=== PATIENT | male | born 1930 | race Caucasian/White ===

== ENCOUNTER 2017-02-10 15:58 | Inpatient (IN) | payer MEDICARE, OTHER ==
[~2017-02-10] VITALS: Ht 175.3 cm; Wt 75.3 kg
[2017-02-10 18:00] VITALS: BP 115/56
[2017-02-10] MEDS ORDERED: MAGNESIUM HYDROXIDE SUSPENSION 30 ML UDCUP PO PRN (18:15)
[2017-02-10] MEDS ORDERED: ONDANSETRON HCL 4 MG TABLET PO PRN (18:15)
[2017-02-10] MEDS ORDERED: ACETAMINOPHEN 325 MG TABLET PO PRN ×2 (18:15)
[2017-02-10] MEDS ORDERED: SODIUM PHOS/SODIUM BIPHOS 133 ML ENEMA PR PRN (18:15)
[2017-02-10] MEDS ORDERED: NITROGLYCERIN 0.4 MG SUBLINGUAL TABLET #25 SL PRN (18:15)
[2017-02-10] MEDS: DOCUSATE SODIUM 250 MG CAPSULE PO SCH (20:53)
[2017-02-10] MEDS: SIMVASTATIN 40 MG TABLET PO SCH (20:53)
[2017-02-10] MEDS: SENNA 187 MG TABLET PO SCH (20:53)
[2017-02-10] MEDS: FAMOTIDINE 20 MG TABLET PO SCH (20:53)
[2017-02-10 22:37] LABS: APPEARANCE,URINE CLEAR (CLEAR); BILIRUBIN,URINE NEGATIVE (NEGATIVE); GLUCOSE, URINE (UA) NEGATIVE (NEGATIVE); KETONES,URINE NEGATIVE (NEGATIVE); LEUKOCYTE ESTERASE ,URINE NEGATIVE (NEGATIVE); NITRATE,URINE NEGATIVE (NEGATIVE); OCCULT BLOOD,URINE NEGATIVE (NEGATIVE); PH,URINE 6.5 (5.0-8.0); PROTEIN,URINE NEGATIVE (NEGATIVE)
[2017-02-10 22:47] LABS: WBC,URINE None Seen /HPF (0-5)
[2017-02-10 22:48] LABS: BACTERIA,URINE None Seen /HPF (None Seen); RBC,URINE 0-2 /HPF (0-2)
[2017-02-10 23:49] VITALS: BP 151/68
[2017-02-11 05:00] VITALS: BP 142/85
[2017-02-11 07:14] VITALS: BP 128/64
[2017-02-11 08:10] LABS: BASOPHILS % (AUTO) 0.4 % (0.0-2.0); EOSINOPHILS % (AUTO) 1.9 % (1.0-6.0); HEMATOCRIT 46.1 % (41-53); HEMOGLOBIN 15.9 g/dL (13.5-17.5); LYMPHOCYTES # (AUTO) 2.1 K/uL (1.0-4.8); MEAN CORPUSCULAR HEMOGLOBIN 33.6 pg (26.0-34.0); MEAN CORPUSCULAR HGB CONC 34.6 G/dL (31.0-37.0); MEAN CORPUSCULAR VOLUME 97 fL (80-100); MONOCYTES # (AUTO) 0.9 K/uL (0.1-1.0); MONOCYTES % (AUTO) 10.4 % (2.0-9.0); NEUTROPHILS # (AUTO) 5.3 K/uL (1.8-7.7); NEUTROPHILS % (AUTO) 62.3 % (40.0-70.0); PLATELET COUNT (AUTO) 196 K/uL (150-450); RED BLOOD CELL COUNT(AUTO) 4.73 MIL/uL (4.50-5.90); RED CELL DISTRIBUTION WIDTH 13.2 % (11.5-14.5)
[2017-02-11 08:29] LABS: ALBUMIN 3.6 g/dL (3.4-5.0); BILIRUBIN,TOTAL 0.9 mg/dL (0.1-1.0); CREATININE 1.22 mg/dL (0.60-1.30); POTASSIUM 4.2 mmol/L (3.5-5.1); TOTAL PROTEIN, SERUM 7.3 g/dL (6.4-8.2)
[2017-02-11] MEDS ORDERED: LISINOPRIL 20 MG TABLET PO SCH ×2 (09:00→21:00)
[2017-02-11] MEDS: DOCUSATE SODIUM 250 MG CAPSULE PO SCH ×3 (09:29→21:00)
[2017-02-11] MEDS: CLOPIDOGREL BISULFATE 75 MG TABLET PO SCH (09:29)
[2017-02-11] MEDS: FAMOTIDINE 20 MG TABLET PO SCH ×2 (09:29→20:58)
[2017-02-11] MEDS: AmLODIPine BESYLATE 2.5 MG TABLET PO SCH (09:30)
[2017-02-11 15:53] VITALS: BP 121/78
[2017-02-11] MEDS: SENNA 187 MG TABLET PO SCH ×2 (20:59→21:00)
[2017-02-11] MEDS: SIMVASTATIN 40 MG TABLET PO SCH (20:59)
[2017-02-11] MEDS ORDERED: TEMAZEPAM 15 MG CAPSULE PO PRN (21:45)
[2017-02-12] VITALS (10 sets, daily range): BP systolic 70–153; BP diastolic 37–99
[2017-02-12 07:49] LABS: CHOL/HDL RATIO 2.7 (4.2-7.3); THYROID STIMULATING HORMONE 1.76 uIU/mL (0.36-3.74)
[2017-02-12 07:56] LABS: HEMOGLOBIN A1C 5.5 % (4.5-6.2)
[2017-02-12] MEDS: DOCUSATE SODIUM 250 MG CAPSULE PO SCH ×2 (07:58→20:47)
[2017-02-12] MEDS: FAMOTIDINE 20 MG TABLET PO SCH ×2 (07:59→20:47)
[2017-02-12] MEDS: AmLODIPine BESYLATE 2.5 MG TABLET PO SCH (07:59)
[2017-02-12] MEDS: CLOPIDOGREL BISULFATE 75 MG TABLET PO SCH (07:59)
[2017-02-12] MEDS: SENNA 187 MG TABLET PO SCH (20:47)
[2017-02-12] MEDS: SIMVASTATIN 40 MG TABLET PO SCH (20:47)
[2017-02-12] MEDS: LISINOPRIL 20 MG TABLET PO SCH (20:47)
[2017-02-13] VITALS (7 sets, daily range): BP systolic 69–140; BP diastolic 46–79
[2017-02-13 01:35] LABS: APPEARANCE,URINE CLEAR (CLEAR); BILIRUBIN,URINE NEGATIVE (NEGATIVE); GLUCOSE, URINE (UA) NEGATIVE (NEGATIVE); KETONES,URINE NEGATIVE (NEGATIVE); LEUKOCYTE ESTERASE ,URINE NEGATIVE (NEGATIVE); NITRATE,URINE NEGATIVE (NEGATIVE); OCCULT BLOOD,URINE NEGATIVE (NEGATIVE); PROTEIN,URINE NEGATIVE (NEGATIVE); UROBILINOGEN,URINE 0.2 mg/dL (<=1.0)
[2017-02-13 01:41] LABS: AMPHET/METH SCREEN,URINE NEGATIVE (NEGATIVE); BARBITURATE SCREEN, URINE NEGATIVE (NEGATIVE); BENZODIAZEPINES SCREEN,URINE NEGATIVE (NEGATIVE); CANNABINOID SCREEN,URINE NEGATIVE (NEGATIVE); COCAINE SCREEN,URINE NEGATIVE (NEGATIVE); METHADONE SCREEN, URINE NEGATIVE (NEGATIVE); OPIATE SCREEN,URINE NEGATIVE (NEGATIVE)
[2017-02-13 01:43] LABS: PHENCYCLIDINE SCREEN,URINE NEGATIVE (NEGATIVE)
[2017-02-13] MEDS: DOCUSATE SODIUM 250 MG CAPSULE PO SCH ×2 (08:09→20:49)
[2017-02-13] MEDS: AmLODIPine BESYLATE 2.5 MG TABLET PO SCH (08:09)
[2017-02-13] MEDS: CLOPIDOGREL BISULFATE 75 MG TABLET PO SCH (08:10)
[2017-02-13] MEDS: FAMOTIDINE 20 MG TABLET PO SCH ×2 (08:10→20:49)
[2017-02-13] MEDS: SENNA 187 MG TABLET PO SCH (20:49)
[2017-02-13] MEDS: LISINOPRIL 20 MG TABLET PO SCH (20:49)
[2017-02-13] MEDS: SIMVASTATIN 40 MG TABLET PO SCH (20:49)
[2017-02-14] VITALS (8 sets, daily range): BP systolic 80–147; BP diastolic 44–74
[2017-02-14 07:20] LABS: CALCIUM, TOTAL 8.4 mg/dL (8.8-10.5); CREATININE 1.19 mg/dL (0.60-1.30); POTASSIUM 4.4 mmol/L (3.5-5.1)
[2017-02-14] MEDS: CLOPIDOGREL BISULFATE 75 MG TABLET PO SCH (08:54)
[2017-02-14] MEDS: FAMOTIDINE 20 MG TABLET PO SCH ×2 (08:54→21:05)
[2017-02-14] MEDS: DOCUSATE SODIUM 250 MG CAPSULE PO SCH ×2 (08:54→21:05)
[2017-02-14] MEDS: SODIUM CHLORIDE 1 GM TABLET PO SCH ×2 (12:29→21:05)
[2017-02-14] MEDS: SENNA 187 MG TABLET PO SCH (21:05)
[2017-02-14] MEDS: SIMVASTATIN 40 MG TABLET PO SCH (21:05)
[2017-02-14] MEDS: LISINOPRIL 20 MG TABLET PO SCH (21:05)
[2017-02-15] VITALS (10 sets, daily range): BP systolic 80–157; BP diastolic 33–76
[2017-02-15] MEDS: DOCUSATE SODIUM 250 MG CAPSULE PO SCH ×2 (08:26→20:16)
[2017-02-15] MEDS: FAMOTIDINE 20 MG TABLET PO SCH ×2 (08:26→20:16)
[2017-02-15] MEDS: SODIUM CHLORIDE 1 GM TABLET PO SCH ×2 (08:26→20:16)
[2017-02-15] MEDS: CLOPIDOGREL BISULFATE 75 MG TABLET PO SCH (08:27)
[2017-02-15] MEDS ORDERED: SODIUM CHLORIDE 0.9% 250 ML IV ONE (11:45)
[2017-02-15] MEDS: SIMVASTATIN 40 MG TABLET PO SCH (20:16)
[2017-02-15] MEDS: SENNA 187 MG TABLET PO SCH (20:17)
[2017-02-16] VITALS (11 sets, daily range): BP systolic 77–159; BP diastolic 48–90
[2017-02-16] MEDS ORDERED: 0.9% SODIUM CHLORIDE 10 ML SYRINGE IVP SCH
[2017-02-16] MEDS ORDERED: LISI-662 PO (05:06)
[2017-02-16] MEDS ORDERED: CLOP75 PO (05:06)
[2017-02-16] MEDS ORDERED: BISA-105 PO (05:06)
[2017-02-16] MEDS ORDERED: SPIR25 PO (05:06)
[2017-02-16] MEDS ORDERED: SIMV-260 PO (05:06)
[2017-02-16] MEDS: DOCUSATE SODIUM 250 MG CAPSULE PO SCH ×2 (08:01→20:30)
[2017-02-16] MEDS: CLOPIDOGREL BISULFATE 75 MG TABLET PO SCH (08:01)
[2017-02-16] MEDS: FAMOTIDINE 20 MG TABLET PO SCH ×2 (08:01→20:30)
[2017-02-16] MEDS: SODIUM CHLORIDE 1 GM TABLET PO SCH ×2 (08:01→20:30)
[2017-02-16] MEDS: SENNA 187 MG TABLET PO SCH (20:30)
[2017-02-16] MEDS: SIMVASTATIN 20 MG TABLET PO SCH (20:30)
[2017-02-16] MEDS ORDERED: SIMVASTATIN 40 MG TABLET PO SCH (21:00)
[2017-02-17] VITALS (7 sets, daily range): BP systolic 87–151; BP diastolic 46–86
[2017-02-17 07:09] LABS: ANION GAP 4 mmol/L (8-16); CALCIUM, TOTAL 8.6 mg/dL (8.8-10.5); CARBON DIOXIDE 27 mmol/L (22-29); CHLORIDE 101 mmol/L (98-107); GLOMERULAR FILTR. RATE CALC > 60 mL/min (>60); GLUCOSE,RANDOM 89 mg/dL (70-110); POTASSIUM 4.3 mmol/L (3.5-5.1); SODIUM SERUM 132 mmol/L (136-145); UREA NITROGEN, BLOOD 20 mg/dL (7-18)
[2017-02-17] MEDS: CLOPIDOGREL BISULFATE 75 MG TABLET PO SCH (08:32)
[2017-02-17] MEDS: DOCUSATE SODIUM 250 MG CAPSULE PO SCH ×2 (08:32→20:57)
[2017-02-17] MEDS: FLUDROCORTISONE ACETATE 0.1 MG TABLET PO SCH (08:32)
[2017-02-17] MEDS: FAMOTIDINE 20 MG TABLET PO SCH ×2 (08:33→20:57)
[2017-02-17] MEDS: SENNA 187 MG TABLET PO SCH (20:57)
[2017-02-17] MEDS: SIMVASTATIN 20 MG TABLET PO SCH (20:58)
[2017-02-17] MEDS: SODIUM CHLORIDE 1 GM TABLET PO SCH (20:58)
[2017-02-18] VITALS (7 sets, daily range): BP systolic 82–151; BP diastolic 48–80
[2017-02-18] MEDS: CLOPIDOGREL BISULFATE 75 MG TABLET PO SCH (07:54)
[2017-02-18] MEDS: SODIUM CHLORIDE 1 GM TABLET PO SCH ×2 (07:54→20:56)
[2017-02-18] MEDS: DOCUSATE SODIUM 250 MG CAPSULE PO SCH ×2 (07:54→20:56)
[2017-02-18] MEDS: FLUDROCORTISONE ACETATE 0.1 MG TABLET PO SCH (07:55)
[2017-02-18] MEDS: FAMOTIDINE 20 MG TABLET PO SCH ×2 (07:55→20:56)
[2017-02-18] MEDS ORDERED: MAGNESIUM HYDROXIDE SUSPENSION 30 ML UDCUP PO PRN (16:15)
[2017-02-18] MEDS: SENNA 187 MG TABLET PO SCH (20:56)
[2017-02-18] MEDS: POLYETHYLENE GLYCOL 3350 17 GM PACKET PO SCH (20:56)
[2017-02-18] MEDS: SIMVASTATIN 20 MG TABLET PO SCH (20:56)
[2017-02-19] VITALS (8 sets, daily range): BP systolic 73–150; BP diastolic 41–94
[2017-02-19] MEDS: POLYETHYLENE GLYCOL 3350 17 GM PACKET PO SCH ×2 (08:21→20:13)
[2017-02-19] MEDS: DOCUSATE SODIUM 250 MG CAPSULE PO SCH ×2 (08:21→20:13)
[2017-02-19] MEDS: FAMOTIDINE 20 MG TABLET PO SCH ×2 (08:21→20:13)
[2017-02-19] MEDS: CLOPIDOGREL BISULFATE 75 MG TABLET PO SCH (08:21)
[2017-02-19] MEDS: SODIUM CHLORIDE 1 GM TABLET PO SCH ×2 (08:21→20:11)
[2017-02-19] MEDS: FLUDROCORTISONE ACETATE 0.1 MG TABLET PO SCH (08:21)
[2017-02-19] MEDS: MAGNESIUM CITRATE 300 ML ORAL SOLUTION PO PRN (17:01)
[2017-02-19] MEDS: SENNA 187 MG TABLET PO SCH (20:12)
[2017-02-19] MEDS: SIMVASTATIN 20 MG TABLET PO SCH (20:13)
[2017-02-19] MEDS: MIDODRINE HCL 2.5 MG TABLET PO SCH (20:22)
[2017-02-20] VITALS (10 sets, daily range): BP systolic 82–154; BP diastolic 53–82
[2017-02-20 08:10] LABS: ANION GAP 3 mmol/L (8-16); CALCIUM, TOTAL 8.5 mg/dL (8.8-10.5); CARBON DIOXIDE 30 mmol/L (22-29); CHLORIDE 103 mmol/L (98-107); CREATININE 1.15 mg/dL (0.60-1.30); GLOMERULAR FILTR. RATE CALC > 60 mL/min (>60); GLUCOSE,RANDOM 89 mg/dL (70-110); POTASSIUM 4.4 mmol/L (3.5-5.1); SODIUM SERUM 136 mmol/L (136-145); UREA NITROGEN, BLOOD 27 mg/dL (7-18)
[2017-02-20] MEDS: MIDODRINE HCL 2.5 MG TABLET PO SCH ×3 (08:14→20:40)
[2017-02-20] MEDS: CLOPIDOGREL BISULFATE 75 MG TABLET PO SCH (08:14)
[2017-02-20] MEDS: FAMOTIDINE 20 MG TABLET PO SCH ×2 (08:14→20:40)
[2017-02-20] MEDS: POLYETHYLENE GLYCOL 3350 17 GM PACKET PO SCH ×2 (08:15→20:39)
[2017-02-20] MEDS: MAGNESIUM CITRATE 300 ML ORAL SOLUTION PO PRN (08:15)
[2017-02-20] MEDS: DOCUSATE SODIUM 250 MG CAPSULE PO SCH ×2 (08:16→20:39)
[2017-02-20] MEDS ORDERED: MIDO2.5T10 PO (10:46)
[2017-02-20] MEDS ORDERED: DOCU250C91 PO (10:48)
[2017-02-20] MEDS ORDERED: MIRALAX PO (10:48)
[2017-02-20] MEDS ORDERED: FAMO20 PO (10:48)
[2017-02-20] MEDS: SENNA 187 MG TABLET PO SCH (20:39)
[2017-02-20] MEDS: SIMVASTATIN 20 MG TABLET PO SCH (20:39)
[2017-02-20] MEDS ORDERED: MIDO5TAB23 PO (22:13)
[2017-02-21 00:03] VITALS: BP 146/84
[2017-02-21 07:28] VITALS: BP 138/77
[2017-02-21 08:00] VITALS: BP 123/73
[2017-02-21 08:10] VITALS: BP 88/48
[2017-02-21] MEDS: MIDODRINE HCL 2.5 MG TABLET PO SCH (08:46)
[2017-02-21] MEDS: POLYETHYLENE GLYCOL 3350 17 GM PACKET PO SCH (08:46)
[2017-02-21] MEDS: CLOPIDOGREL BISULFATE 75 MG TABLET PO SCH (08:46)
[2017-02-21] MEDS: FAMOTIDINE 20 MG TABLET PO SCH (08:46)
[2017-02-21] MEDS: DOCUSATE SODIUM 250 MG CAPSULE PO SCH (08:46)
== END 2017-02-21 13:56 | disposition home health service (06) | DRG 65 ==
LOC: 2WR 17:50
DX: I62.9 Nontraumatic intracranial hemorrhage, unspecified (principal); E87.1 Hypo-osmolality and hyponatremia; I44.7 Left bundle-branch block, unspecified; R00.1 Bradycardia, unspecified; E78.5 Hyperlipidemia, unspecified; F41.9 Anxiety disorder, unspecified; I10 Essential (primary) hypertension; I25.10 Atherosclerotic heart disease of native coronary artery without angina pectoris; I44.1 Atrioventricular block, second degree; I95.1 Orthostatic hypotension; K59.09 Other constipation; R47.01 Aphasia; R48.0 Dyslexia and alexia; Z86.73 Personal history of transient ischemic attack (TIA), and cerebral infarction without residual deficits; I25.2 Old myocardial infarction; Z88.6 Allergy status to analgesic agent; Z91.81 History of falling; Z95.5 Presence of coronary angioplasty implant and graft; Z82.3 Family history of stroke
CPT/HCPCS: 80307; 83036; 84443; 87081; 92507; 92508; 92523; 93005; 97112; 97116; 97150; 97162; 97166; 97530; 97535; 99285; 99366